=== PATIENT | male | born 1995 | race Caucasian/White ===

== ENCOUNTER 2017-07-27 14:23 | Emergency (ER) | payer SELFPAY ==
[~2017-07-27] VITALS: Ht 170.2 cm; Wt 70.3 kg
[2017-07-27] MEDS ORDERED: TDAP [DIPH/PERTUSSIS/TET] 0.5 ML VIAL IM ONE ×2 (15:00→15:38)
[2017-07-27] MEDS ORDERED: LIDOCAINE HCL/PF 1% 30 ML VIAL TP ONE (15:00)
[2017-07-27 15:36] VITALS: BP 141/79
[2017-07-27] MEDS ORDERED: LIDOCAINE 1% INJ 50 ML MDV IJ ONE (15:38)
--- NOTE | 2017-07-27 16:01 | NUR ---
WOUND DRESSING DONE BY PRIMO AT BEDSIDE; NO ACUTE DISTRESS
--- NOTE | 2017-07-27 16:02 | NUR ---
Patient discharged to home in stable condition. Written and verbal after care instructions given. Patient verbalizes understanding of instruction.
== END 2017-07-27 16:02 | disposition home or self-care (01) ==
LOC: ER 14:26
DX: S61.411A Laceration without foreign body of right hand, initial encounter (principal); Z23 Encounter for immunization; W25.XXXA Contact with sharp glass, initial encounter; Y93.89 Activity, other specified; Y92.89 Other specified places as the place of occurrence of the external cause; Y99.8 Other external cause status
CPT/HCPCS: 12001; 73130; 90471; 90715; 99284; A4606; A6402; J3490 ×2; Z7610